=== PATIENT | female | born 1945 | race Caucasian/White ===

== ENCOUNTER → 2016-05-09 | Outpatient (CLI) | payer MEDICARE ==
[~2016-05-09] MED LIST: CHOL200016 PO; CYAN500 PO; LEVO100T4 PO; LISI-662 PO; SERT50TA12 PO; SIMV-261 PO
== END | disposition home or self-care (01) ==
LOC: RADMN 10:04
PROVIDERS: ATTEND Legal Medicine
DX: M75.102 Unspecified rotator cuff tear or rupture of left shoulder, not specified as traumatic (principal)
CPT/HCPCS: 73221

== ENCOUNTER → 2016-06-13 | Outpatient (CLI) | payer MEDICARE ==
[~2016-06-13] MED LIST changes: -SIMV-261 PO; +SIMV40 PO
== END | disposition home or self-care (01) ==
LOC: RADPV 13:38
PROVIDERS: ATTEND Internal Medicine Cardiovascular Disease
DX: R10.2 Pelvic and perineal pain (principal)
CPT/HCPCS: 76830; 76856